=== PATIENT | female | born 1985 | race Caucasian/White ===

== ENCOUNTER 2021-01-22 03:19 | Emergency (ER) | payer OTHER ==
[~2021-01-22] VITALS: Ht 162.6 cm; Wt 99.8 kg
[2021-01-22 03:50] VITALS: BP 142/84
[2021-01-22] MEDS ORDERED: ONDANSETRON ODT 4MG TAB ONE (04:20)
[2021-01-22] MEDS ORDERED: HYDROCODONE/ACETAMINOPHEN 7.5/325 MG TAB ONE (04:21)
[2021-01-22] MEDS ORDERED: HYDROCODONE/ACETAMINOPHEN 7.5/325 MG TAB PO ONE (04:30)
[2021-01-22] MEDS ORDERED: ONDANSETRON ODT 4MG TAB SL SCH (04:30)
[2021-01-22] MEDS ORDERED: KETOROLAC 30MG VIAL (30MG/ML) ONE (04:59)
[2021-01-22] MEDS ORDERED: KETOROLAC 30MG VIAL (30MG/ML) IM ONE (05:00)
[2021-01-22] MEDS ORDERED: AMOX-429 PO (05:35)
== END 2021-01-22 05:47 | disposition home or self-care (01) ==
LOC: EDH 03:26
DX: H60.92 Unspecified otitis externa, left ear (principal); Z79.899 Other long term (current) drug therapy
CPT/HCPCS: 96372; 99283; J1885